=== PATIENT | female | born 1955 | race Caucasian/White ===

== ENCOUNTER → 2018-11-08 | Outpatient (CLI) | payer MEDICARE, MEDICAID | END | disposition home or self-care (01) | LOC: CARD 08:02 | PROVIDERS: ATTEND Psychiatry & Neurology Neurology | DX: G40.909 Epilepsy, unspecified, not intractable, without status epilepticus (principal) ==

== ENCOUNTER → 2019-01-03 | Outpatient (CLI) | payer MEDICARE, MEDICAID | END | disposition home or self-care (01) | LOC: CARD 08:09 | PROVIDERS: ATTEND Psychiatry & Neurology Neurology | DX: G40.909 Epilepsy, unspecified, not intractable, without status epilepticus (principal) ==

== ENCOUNTER 2020-02-12 11:20 | Inpatient (IN) | payer MEDICARE, MEDICAID ==
[~2020-02-12] VITALS: Ht 170.2 cm; Wt 59.5 kg
[2020-02-12] MEDS ORDERED: PIPERACILLIN/TAZ 3.375G PREMIX 50 ML IV ONE (11:45)
[2020-02-12] MEDS ORDERED: SODIUM CHLORIDE 0.9% 1000ML BAG (SEPSIS BOLUS) IV ONE (11:45)
[2020-02-12] MEDS ORDERED: VANCOMYCIN 1 G PREMIX 200 ML IV ONE (11:45)
[2020-02-12 12:11] LABS: BG BASE EXCESS -1.1 mmol/L (-2.0-2.0); BG CARBOXYHEMOGLOBIN 0.4 % (0.5-1.5); BG HCO3 ACT 21.2 mmol/L (22.0-26.0); BG METHEMOGLOBIN 0.3 % (0.0-1.5); BG OXYHEMOGLOBIN 94.3 % (94.0-97.0); BG PCO2 28.8 mmHg (35.0-45.0); BG PH 7.484 (7.350-7.450); BG PO2 69.9 mmHg (75.0-100.0); BG SAMPLE SITE RIGHT RADIAL; BG VENT MODE ROOM AIR
[2020-02-12 12:15] LABS: BASOPHILS % 0.3 % (0.0-2.0); EOSINOPHILS % 0.1 % (0.0-5.0); HEMATOCRIT. 38.7 % (36.0-48.0); HEMOGLOBIN. 13.2 g/dL (12.0-16.0); MEAN CORPUSCULAR HEMOGLOBIN 28.1 pg (28.0-32.0); MEAN CORPUSCULAR VOLUME 82.3 fL (81.0-99.0); MEAN PLATELET VOLUME 8.1 fl (7.4-10.4); MONOCYTES % 7.8 % (2.0-8.0); NEUTROPHILS % 76.8 % (40.0-76.0); PLATELET 227 x1000/uL (130-400)
[2020-02-12 12:20] LABS: CHLORIDE 101 mEq/L (98-107)
[2020-02-12 12:28] LABS: CREATINE KINASE 65 IU/L (26-192)
[2020-02-12 12:32] LABS: D-DIMER 0.4 mg/L FEU (<0.50); INR 1.1; PROTHROMBIN TIME 11.2 sec (9.6-11.0)
[2020-02-12 13:07] LABS: CLARITY URINE CLEAR (CLEAR); COLOR URINE YELLOW (YELLOW); KETONES URINE TRACE (NEGATIVE); LEUKOCYTE ESTERASE URINE NEGATIVE (NEGATIVE); NITRITE URINE NEGATIVE (NEGATIVE); OCCULT BLOOD URINE NEGATIVE (NEGATIVE); PH URINE 7.5 (4.5-8.0); PROTEIN URINE 2+ (NEGATIVE)
[2020-02-12] MEDS ORDERED: BENZONATATE 100MG CAPSULE PO PRN (14:15)
[2020-02-12] MEDS ORDERED: CEFTRIAXONE 1 G PREMIX 50 ML IV SCH (14:15)
[2020-02-12] MEDS ORDERED: DEXTROSE 50% WATER 50ML SYRINGE IV PRN (14:15)
[2020-02-12] MEDS ORDERED: ENOXAPARIN 60MG/0.6ML SYR SUBCUT SCH (14:30)
[2020-02-12] MEDS: AMLODIPINE 10MG TABLET PO SCH (14:59)
[2020-02-12] MEDS: AZITHROMYCIN 500 MG TABLET PO SCH (14:59)
[2020-02-12 16:58] VITALS: BP 141/78
[2020-02-12] MEDS ORDERED: POTASSIUM CHLORIDE 20MEQ TABLET SR PO NR (17:45)
[2020-02-12 18:00] VITALS: BP 141/78
[2020-02-12] MEDS: ALBUTEROL 6.7GM HFA INHALER ORI SCH (18:00)
[2020-02-12] MEDS ORDERED: DEXAMETHASONE 4MG TABLET PO SCH (18:00)
[2020-02-12] MEDS: BLOOD SUGAR DIAGNOSTIC STRIP TEST SCH ×2 (18:02→22:57)
[2020-02-12] MEDS: INSULIN LISPRO 100 UNITS/ML SUBCUT SCH ×2 (18:08→23:19)
[2020-02-12 20:00] VITALS: BP 115/76
[2020-02-12] MEDS: GUAIFENESIN 600MG ER TABLET PO SCH (22:57)
[2020-02-12] MEDS: INSULIN GLARGINE UD 100 UNITS/ML SYR SUBCUT SCH (23:01)
[2020-02-13] VITALS: BP 151/91
[2020-02-13] MEDS: ENOXAPARIN 60MG/0.6ML SYR SUBCUT SCH ×2 (03:10→15:23)
[2020-02-13 04:00] VITALS: BP 145/79
[2020-02-13] MEDS: ALBUTEROL 6.7GM HFA INHALER ORI SCH ×4 (06:00→18:26)
[2020-02-13] MEDS: BLOOD SUGAR DIAGNOSTIC STRIP TEST SCH ×4 (06:15→21:06)
[2020-02-13 08:00] VITALS: BP 146/78
[2020-02-13] MEDS: AMLODIPINE 10MG TABLET PO SCH (08:16)
[2020-02-13] MEDS: GUAIFENESIN 600MG ER TABLET PO SCH ×2 (08:16→21:02)
[2020-02-13] MEDS: AZITHROMYCIN 500 MG TABLET PO SCH (08:16)
[2020-02-13] MEDS: INSULIN LISPRO 100 UNITS/ML SUBCUT SCH ×4 (08:17→21:06)
[2020-02-13] MEDS: INSULIN GLARGINE UD 100 UNITS/ML SYR SUBCUT SCH ×2 (09:26→21:07)
[2020-02-13] MEDS: CEFTRIAXONE 1,000 MG in DEXTROSE 5% WATER 50 ML IV SCH (11:09)
[2020-02-13 12:00] VITALS: BP 142/78
[2020-02-13 13:52] LABS: CHLORIDE 107 mEq/L (98-107)
[2020-02-13 13:58] LABS: PHOSPHORUS 2.1 mg/dL (2.5-4.9)
[2020-02-13] MEDS ORDERED: DEXAMETHASONE 4MG TABLET PO NR (14:30)
[2020-02-13 16:00] VITALS: BP 109/49
[2020-02-13] MEDS: REMDESIVIR 200 MG in SODIUM CHLORIDE 0.9% 250 ML IV SCH ×2 (16:00→16:53)
[2020-02-13 20:00] VITALS: BP 143/85
[2020-02-13] MEDS ORDERED: POTASSIUM PHOS,M-BASIC-D-BASIC 15 MMOL in DEXT 5% WATER 245 ML IV NR (20:00)
[2020-02-13] MEDS ORDERED: MAGNESIUM 2 G PREMIX 50 ML IV NR (20:00)
[2020-02-14] VITALS: BP 152/78
[2020-02-14] MEDS: ALBUTEROL 6.7GM HFA INHALER ORI SCH ×5 (00:24→23:32)
[2020-02-14] MEDS: ENOXAPARIN 60MG/0.6ML SYR SUBCUT SCH ×2 (03:38→14:30)
[2020-02-14 04:00] VITALS: BP 152/98
[2020-02-14] MEDS: BLOOD SUGAR DIAGNOSTIC STRIP TEST SCH ×4 (07:40→20:23)
[2020-02-14 08:00] VITALS: BP 159/55
[2020-02-14] MEDS: AZITHROMYCIN 500 MG TABLET PO SCH (08:31)
[2020-02-14] MEDS: AMLODIPINE 10MG TABLET PO SCH (08:32)
[2020-02-14] MEDS: DEXAMETHASONE 4MG TABLET PO SCH (08:32)
[2020-02-14] MEDS: GUAIFENESIN 600MG ER TABLET PO SCH ×2 (08:32→20:21)
[2020-02-14] MEDS: INSULIN LISPRO 100 UNITS/ML SUBCUT SCH ×4 (08:33→20:23)
[2020-02-14] MEDS: INSULIN GLARGINE UD 100 UNITS/ML SYR SUBCUT SCH ×2 (10:10→21:39)
[2020-02-14] MEDS: CEFTRIAXONE 1,000 MG in DEXTROSE 5% WATER 50 ML IV SCH (11:15)
[2020-02-14 12:00] VITALS: BP 117/61
[2020-02-14] MEDS: REMDESIVIR 100 MG in SODIUM CHLORIDE 0.9% 250 ML IV SCH (15:09)
[2020-02-14 15:56] VITALS: BP 146/73
[2020-02-14 20:00] VITALS: BP 148/80
[2020-02-15 00:23] VITALS: BP 145/85
[2020-02-15] MEDS: ENOXAPARIN 60MG/0.6ML SYR SUBCUT SCH ×2 (02:09→15:17)
[2020-02-15 04:00] VITALS: BP 147/83
[2020-02-15] MEDS: ALBUTEROL 6.7GM HFA INHALER ORI SCH ×3 (05:27→17:48)
[2020-02-15] MEDS: BLOOD SUGAR DIAGNOSTIC STRIP TEST SCH ×4 (06:44→20:54)
[2020-02-15] MEDS: INSULIN LISPRO 100 UNITS/ML SUBCUT SCH ×4 (07:27→22:08)
[2020-02-15] MEDS: AMLODIPINE 10MG TABLET PO SCH (08:43)
[2020-02-15] MEDS: DEXAMETHASONE 4MG TABLET PO SCH (08:43)
[2020-02-15] MEDS: GLIPIZIDE XL 2.5MG TABLET PO SCH (08:43)
[2020-02-15] MEDS: GUAIFENESIN 600MG ER TABLET PO SCH ×2 (08:43→21:59)
[2020-02-15] MEDS: AZITHROMYCIN 500 MG TABLET PO SCH (08:43)
[2020-02-15] MEDS: INSULIN GLARGINE UD 100 UNITS/ML SYR SUBCUT SCH ×2 (10:14→22:09)
[2020-02-15 12:00] VITALS: BP 135/79
[2020-02-15] MEDS: CEFTRIAXONE 1,000 MG in DEXTROSE 5% WATER 50 ML IV SCH (12:36)
[2020-02-15] MEDS: REMDESIVIR 100 MG in SODIUM CHLORIDE 0.9% 250 ML IV SCH (15:17)
[2020-02-15 16:00] VITALS: BP 128/69
[2020-02-15 20:00] VITALS: BP 131/69
[2020-02-16] VITALS (10 sets, daily range): BP systolic 124–154; BP diastolic 67–82
[2020-02-16] MEDS: ALBUTEROL 6.7GM HFA INHALER ORI SCH ×4 (00:01→17:34)
[2020-02-16] MEDS: ENOXAPARIN 60MG/0.6ML SYR SUBCUT SCH ×2 (02:22→15:15)
[2020-02-16] MEDS: BLOOD SUGAR DIAGNOSTIC STRIP TEST SCH ×4 (06:44→21:00)
[2020-02-16] MEDS: INSULIN LISPRO 100 UNITS/ML SUBCUT SCH ×4 (07:44→21:00)
[2020-02-16] MEDS: GLIPIZIDE XL 2.5MG TABLET PO SCH (08:51)
[2020-02-16] MEDS: DEXAMETHASONE 4MG TABLET PO SCH (09:14)
[2020-02-16] MEDS: GUAIFENESIN 600MG ER TABLET PO SCH ×2 (09:14→21:59)
[2020-02-16] MEDS: ACETAMINOPHEN 325MG TABLET PO PRN (09:15)
[2020-02-16] MEDS: AMLODIPINE 10MG TABLET PO SCH (09:15)
[2020-02-16] MEDS: AZITHROMYCIN 500 MG TABLET PO SCH (09:15)
[2020-02-16] MEDS: INSULIN GLARGINE UD 100 UNITS/ML SYR SUBCUT SCH ×2 (10:27→21:59)
[2020-02-16] MEDS: CEFTRIAXONE 1,000 MG in DEXTROSE 5% WATER 50 ML IV SCH (12:42)
[2020-02-16] MEDS: REMDESIVIR 100 MG in SODIUM CHLORIDE 0.9% 250 ML IV SCH (15:16)
[2020-02-17] VITALS: BP 136/80
[2020-02-17] MEDS: ALBUTEROL 6.7GM HFA INHALER ORI SCH ×5 (00:15→23:40)
[2020-02-17] MEDS: ENOXAPARIN 60MG/0.6ML SYR SUBCUT SCH ×2 (03:26→15:09)
[2020-02-17 04:00] VITALS: BP 135/69
[2020-02-17] MEDS: BLOOD SUGAR DIAGNOSTIC STRIP TEST SCH ×4 (05:45→21:09)
[2020-02-17 08:00] VITALS: BP 130/69
[2020-02-17] MEDS: INSULIN LISPRO 100 UNITS/ML SUBCUT SCH ×4 (08:10→21:10)
[2020-02-17] MEDS: AMLODIPINE 10MG TABLET PO SCH (09:00)
[2020-02-17] MEDS: AZITHROMYCIN 500 MG TABLET PO SCH (09:31)
[2020-02-17] MEDS: GUAIFENESIN 600MG ER TABLET PO SCH ×2 (09:31→21:10)
[2020-02-17] MEDS: DEXAMETHASONE 4MG TABLET PO SCH (09:31)
[2020-02-17] MEDS: GLIPIZIDE XL 2.5MG TABLET PO SCH (09:31)
[2020-02-17] MEDS: INSULIN GLARGINE UD 100 UNITS/ML SYR SUBCUT SCH ×2 (10:42→21:34)
[2020-02-17 12:00] VITALS: BP 135/74
[2020-02-17] MEDS: CEFTRIAXONE 1,000 MG in DEXTROSE 5% WATER 50 ML IV SCH (12:35)
[2020-02-17] MEDS: REMDESIVIR 100 MG in SODIUM CHLORIDE 0.9% 250 ML IV SCH (15:26)
[2020-02-17 16:00] VITALS: BP 129/89
[2020-02-17 16:03] LABS: BG BASE EXCESS 3.3 mmol/L (-2.0-2.0); BG CARBOXYHEMOGLOBIN 0.2 % (0.5-1.5); BG DEOXYHEMOGLOBIN 3.3 % (0.0-5.0); BG FRACTION INSPIRED OXYGEN 100; BG HCO3 ACT 26.8 mmol/L (22.0-26.0); BG METHEMOGLOBIN 0.2 % (0.0-1.5); BG OXYGEN SATURATION 96.7 % (92.0-98.5); BG OXYHEMOGLOBIN 96.3 % (94.0-97.0); BG PCO2 37.1 mmHg (35.0-45.0); BG PH 7.477 (7.350-7.450); BG PO2 86.5 mmHg (75.0-100.0); BG SAMPLE SITE RIGHT RADIAL; BG TOTAL HEMOGLOBIN 13.3 g/dL (12.0-18.0); BG VENT MODE MASK - NRB
[2020-02-17 19:53] LABS: BASOPHILS % 0.6 % (0.0-2.0); HEMATOCRIT. 37.5 % (36.0-48.0); HEMOGLOBIN. 12.6 g/dL (12.0-16.0); LYMPHOCYTES % 7.4 % (20.0-50.0); MEAN CORPUSCULAR HEMOGLOBIN 27.6 pg (28.0-32.0); MEAN CORPUSCULAR VOLUME 82.6 fL (81.0-99.0); MEAN PLATELET VOLUME 7.7 fl (7.4-10.4); MONOCYTES % 2.4 % (2.0-8.0); NEUTROPHILS % 89.6 % (40.0-76.0); PLATELET 450 x1000/uL (130-400); RED BLOOD CELL COUNT 4.54 mill/uL (4.2-5.4); RED CELL DISTRIBUTION WIDTH 13.5 % (11.6-14.6)
[2020-02-17 19:57] LABS: CHLORIDE 104 mEq/L (98-107)
[2020-02-17 20:00] VITALS: BP 141/130
[2020-02-18 00:38] VITALS: BP 130/74
[2020-02-18] MEDS: ENOXAPARIN 60MG/0.6ML SYR SUBCUT SCH ×2 (02:21→15:05)
[2020-02-18 04:00] VITALS: BP 118/69
[2020-02-18] MEDS: ALBUTEROL 6.7GM HFA INHALER ORI SCH ×3 (05:26→17:09)
[2020-02-18] MEDS: BLOOD SUGAR DIAGNOSTIC STRIP TEST SCH ×4 (07:16→21:42)
[2020-02-18] MEDS: INSULIN LISPRO 100 UNITS/ML SUBCUT SCH ×4 (07:17→21:42)
[2020-02-18 08:00] VITALS: BP 120/72
[2020-02-18] MEDS: AMLODIPINE 10MG TABLET PO SCH (09:44)
[2020-02-18] MEDS: DEXAMETHASONE 4MG TABLET PO SCH (09:44)
[2020-02-18] MEDS: GUAIFENESIN 600MG ER TABLET PO SCH ×2 (09:44→21:02)
[2020-02-18] MEDS: GLIPIZIDE XL 2.5MG TABLET PO SCH (09:44)
[2020-02-18] MEDS: INSULIN GLARGINE UD 100 UNITS/ML SYR SUBCUT SCH ×2 (10:47→22:36)
[2020-02-18 12:00] VITALS: BP 105/58
[2020-02-18 16:10] VITALS: BP 127/76
[2020-02-18] MEDS: DEXAMETHASONE 2MG TABLET PO SCH (17:07)
[2020-02-18 20:00] VITALS: BP 124/71
[2020-02-19] VITALS (7 sets, daily range): BP systolic 107–131; BP diastolic 61–78
[2020-02-19] MEDS: ALBUTEROL 6.7GM HFA INHALER ORI SCH ×5 (01:31→23:11)
[2020-02-19] MEDS: DEXAMETHASONE 2MG TABLET PO SCH ×5 (01:31→23:11)
[2020-02-19] MEDS: ENOXAPARIN 60MG/0.6ML SYR SUBCUT SCH ×2 (03:27→15:25)
[2020-02-19] MEDS: BLOOD SUGAR DIAGNOSTIC STRIP TEST SCH ×4 (07:14→21:10)
[2020-02-19] MEDS: GUAIFENESIN 600MG ER TABLET PO SCH ×2 (08:07→20:00)
[2020-02-19] MEDS: AMLODIPINE 10MG TABLET PO SCH (08:07)
[2020-02-19] MEDS: GLIPIZIDE XL 2.5MG TABLET PO SCH (08:07)
[2020-02-19] MEDS: INSULIN LISPRO 100 UNITS/ML SUBCUT SCH ×4 (08:12→21:10)
[2020-02-19] MEDS: INSULIN GLARGINE UD 100 UNITS/ML SYR SUBCUT SCH ×2 (09:16→23:07)
[2020-02-20] VITALS: BP 115/63
[2020-02-20] MEDS: ENOXAPARIN 60MG/0.6ML SYR SUBCUT SCH ×2 (02:35→16:17)
[2020-02-20 04:00] VITALS: BP 130/74
[2020-02-20] MEDS: ALBUTEROL 6.7GM HFA INHALER ORI SCH ×3 (06:07→18:34)
[2020-02-20] MEDS: DEXAMETHASONE 2MG TABLET PO SCH ×3 (06:07→18:32)
[2020-02-20] MEDS: BLOOD SUGAR DIAGNOSTIC STRIP TEST SCH ×4 (06:40→20:43)
[2020-02-20 08:00] VITALS: BP 126/74
[2020-02-20] MEDS: INSULIN LISPRO 100 UNITS/ML SUBCUT SCH ×4 (08:49→20:59)
[2020-02-20] MEDS: AMLODIPINE 10MG TABLET PO SCH (09:01)
[2020-02-20] MEDS: GLIPIZIDE XL 2.5MG TABLET PO SCH (09:02)
[2020-02-20] MEDS: ACETAMINOPHEN 325MG TABLET PO PRN (09:02)
[2020-02-20] MEDS: GUAIFENESIN 600MG ER TABLET PO SCH ×2 (09:02→20:43)
[2020-02-20 12:00] VITALS: BP 124/72
[2020-02-20] MEDS: INSULIN GLARGINE UD 100 UNITS/ML SYR SUBCUT SCH ×2 (12:23→22:17)
[2020-02-20 16:00] VITALS: BP 118/63
[2020-02-20 20:00] VITALS: BP 124/70
[2020-02-21] VITALS: BP 132/75
[2020-02-21] MEDS: ALBUTEROL 6.7GM HFA INHALER ORI SCH ×4 (00:15→17:50)
[2020-02-21] MEDS: DEXAMETHASONE 2MG TABLET PO SCH ×4 (00:16→17:51)
[2020-02-21 04:00] VITALS: BP 120/75
[2020-02-21] MEDS: ENOXAPARIN 60MG/0.6ML SYR SUBCUT SCH ×2 (05:12→14:14)
[2020-02-21] MEDS: ACETAMINOPHEN 325MG TABLET PO PRN (05:24)
[2020-02-21] MEDS: BLOOD SUGAR DIAGNOSTIC STRIP TEST SCH ×4 (07:24→21:36)
[2020-02-21 07:56] VITALS: BP 122/78
[2020-02-21] MEDS: AMLODIPINE 10MG TABLET PO SCH (08:03)
[2020-02-21] MEDS: GUAIFENESIN 600MG ER TABLET PO SCH ×2 (08:03→21:40)
[2020-02-21] MEDS: GLIPIZIDE XL 2.5MG TABLET PO SCH (08:03)
[2020-02-21] MEDS: INSULIN LISPRO 100 UNITS/ML SUBCUT SCH ×4 (08:04→21:40)
[2020-02-21] MEDS: INSULIN GLARGINE UD 100 UNITS/ML SYR SUBCUT SCH ×2 (10:18→21:41)
[2020-02-21 12:30] VITALS: BP 128/65
[2020-02-21 15:53] VITALS: BP 126/78
[2020-02-21 16:10] LABS: BG BASE EXCESS 0.7 mmol/L (-2.0-2.0); BG CARBOXYHEMOGLOBIN 0.7 % (0.5-1.5); BG DEOXYHEMOGLOBIN 9.8 % (0.0-5.0); BG FRACTION INSPIRED OXYGEN 21; BG HCO3 ACT 23.9 mmol/L (22.0-26.0); BG METHEMOGLOBIN 0.3 % (0.0-1.5); BG OXYGEN SATURATION 90.1 % (92.0-98.5); BG OXYHEMOGLOBIN 89.2 % (94.0-97.0); BG PCO2 34.1 mmHg (35.0-45.0); BG PH 7.464 (7.350-7.450); BG PO2 58.4 mmHg (75.0-100.0); BG SAMPLE SITE LEFT RADIAL; BG TOTAL HEMOGLOBIN 14.3 g/dL (12.0-18.0); BG VENT MODE ROOM AIR
[2020-02-21 20:00] VITALS: BP 116/64
[2020-02-22] VITALS: BP 130/77
[2020-02-22] MEDS: ALBUTEROL 6.7GM HFA INHALER ORI SCH ×3 (00:47→11:11)
[2020-02-22] MEDS: ENOXAPARIN 60MG/0.6ML SYR SUBCUT SCH (00:47)
[2020-02-22] MEDS: DEXAMETHASONE 2MG TABLET PO SCH ×3 (00:47→11:11)
[2020-02-22 04:00] VITALS: BP 130/75
[2020-02-22] MEDS: BLOOD SUGAR DIAGNOSTIC STRIP TEST SCH ×2 (05:43→11:15)
[2020-02-22 08:30] VITALS: BP 124/72
[2020-02-22] MEDS: GUAIFENESIN 600MG ER TABLET PO SCH (08:39)
[2020-02-22] MEDS: INSULIN LISPRO 100 UNITS/ML SUBCUT SCH ×2 (08:44→11:16)
[2020-02-22] MEDS: AMLODIPINE 10MG TABLET PO SCH (08:44)
[2020-02-22] MEDS: GLIPIZIDE XL 2.5MG TABLET PO SCH (08:45)
[2020-02-22 09:25] VITALS: BP 129/75
[2020-02-22] MEDS: INSULIN GLARGINE UD 100 UNITS/ML SYR SUBCUT SCH (09:48)
[2020-02-23] MEDS ORDERED: DEXAMETHASONE 4MG TABLET PO SCH (09:00)
== END 2020-02-22 11:55 | disposition home or self-care (01) | DRG 871 ==
LOC: ER 11:20 → 7WST 13:47 → EDBEDREQ 13:54 → EDBEDREQSVC 13:54 → ENRESERV 15:19 → ER 15:41 → 7WST 02-19 02:30
PROVIDERS: ADMIT Internal Medicine; ATTEND Internal Medicine
PROC: XW033E5 Introduction of Remdesivir Anti-infective into Peripheral Vein, Percutaneous Approach, New Technology Group 5 (ICD-10-PCS; principal; 2020-02-15)
DX: A41.89 Other specified sepsis (principal); U07.1 COVID-19; J96.01 Acute respiratory failure with hypoxia; J12.89 Other viral pneumonia; D68.59 Other primary thrombophilia; E44.0 Moderate protein-calorie malnutrition; E87.2 Acidosis; E78.5 Hyperlipidemia, unspecified; I10 Essential (primary) hypertension; E87.6 Hypokalemia; B97.89 Other viral agents as the cause of diseases classified elsewhere; E11.9 Type 2 diabetes mellitus without complications; D72.810 Lymphocytopenia; Z78.9 Other specified health status; Z88.6 Allergy status to analgesic agent; Z88.2 Allergy status to sulfonamides; Z88.8 Allergy status to other drugs, medicaments and biological substances; Z68.20 Body mass index [BMI] 20.0-20.9, adult; Z90.49 Acquired absence of other specified parts of digestive tract
CPT/HCPCS: 36415; 36600; 71045; 80048; 80053; 81003; 82375; 82550; 82728; 82805; 82962; 83605; 83615; 83735; 83880; 84100; 84145; 84484; 85025; 85379; 85384; 86140; 86850; 86900; 93005; 99291; J0696; J1650; J1815; J2543; J3370; J3475; J3490; J7030; J7050; J7060; J8540; Q9957; U0003-CS